=== PATIENT | male | born 1980 | race Caucasian/White ===

== ENCOUNTER 2023-06-16 09:29 | Observation (INO) | payer MEDICARE, OTHER ==
[~2023-06-16] VITALS: Ht 180.3 cm; Wt 83.5 kg
[2023-06-16 10:58] LABS: BASOPHILS ABSOLUTE AUTO 0.08 K/mm3 (0.00-0.23); BASOPHILS PERCENT AUTO 1 % (0-2); EOSINOPHILS ABSOLUTE AUTO 0.26 K/mm3 (0.00-0.68); EOSINOPHILS PERCENT AUTO 3 % (0-6); Hematocrit 40.9 % (37.0-53.0); Hemoglobin 12.8 g/dL (13.5-17.5); IMMATURE GRAN ABSOLUTE AUTO 0.03 K/mm3 (0.00-0.10); IMMATURE GRAN PERCENT AUTO 0 % (0-1); LYMPHOCYTES ABSOLUTE AUTO 1.49 K/mm3 (0.84-5.20); LYMPHOCYTES PERCENT AUTO 15 % (21-46); MONOCYTES ABSOLUTE AUTO 0.87 K/mm3 (0.16-1.47); MONOCYTES PERCENT AUTO 9 % (4-13); Mean Corpuscular HGB 30.7 pg (26.0-34.0); Mean Corpuscular HGB Conc 31.3 g/dL (31.5-36.5); Mean Corpuscular Volume 98 fL (80-100); Mean Platelet Volume 9.8 fL (9.1-12.4); NEUTROPHILS ABSOLUTE AUTO 7.42 K/mm3 (1.96-9.15); NEUTROPHILS PERCENT AUTO 73 % (41-73); Platelet Count 247 K/mm3 (150-400); RDW Coefficient Variation 12.7 % (11.7-14.2); RDW Standard Deviation 45.5 fL (35.1-46.3); Red Blood Cell Count 4.17 M/mm3 (4.30-5.90); White Blood Cell Count 10.15 K/mm3 (4.00-11.30)
[2023-06-16 11:23] LABS: Albumin, Blood 3.9 g/dL (3.4-5.0); Albumin/Globulin Ratio 0.9 (0.8-1.8); Bilirubin, Total 0.2 mg/dL (0.1-1.0); Bun/Creatinine Ratio 17.7 (12.0-20.0); Calcium, Blood 9.4 mg/dL (8.5-10.1); Creatinine, Blood 2.94 mg/dL (0.60-1.20); Globulin, Blood 4.2 g/dL (2.2-4.0); Potassium, Blood 5.6 mmol/L (3.5-5.5); Total Protein, Blood 8.1 g/dL (6.4-8.2)
[2023-06-16 18:12] VITALS: BP 135/80
[2023-06-16] MEDS ORDERED: Carvedilol12.5 MG PO (18:27)
[2023-06-16] MEDS ORDERED: HYDRA25 PO (18:28)
[2023-06-16] MEDS ORDERED: LISI20 PO (18:28)
[2023-06-16] MEDS ORDERED: HYDCHL25 PO (18:29)
[2023-06-16] MEDS ORDERED: CATAPRES0.1 MG PO (18:29)
--- NOTE | 2023-06-16 18:46 | NUR ---
ASSUMED CARE OF PT. PT ARRIVED AT 1800 AND TRANSFERED TO BED INDEPENDENTLY. PT A&OX4 AND CALLS APPROPRIATELY. TELEMETRY CONNECTED. PT ORIENTED TO ROOM AND UNIT. VSS. NO ACUTE EVENTS AT THIS TIME.
[2023-06-16 21:06] VITALS: BP 108/74
--- NOTE | 2023-06-17 03:01 | NUR ---
SHIFT SUMMARY PT A&O X4, CALM AND COOPERATIVE WITH CARE. TELEMETRY: SR @ 72. PT DENIES ANY CP OR PRESSURE AT THIS TIME. ROOM AIR. PT CALLS APPROPRAITELY FOR NEEDS. CALL LIGHT WITHIN REACH. PT CALLS APPROPRAITELY.
[2023-06-17 05:34] VITALS: BP 106/76
[2023-06-17 07:27] VITALS: BP 103/78
[2023-06-17 08:55] LABS: Albumin, Blood 3.7 g/dL (3.4-5.0); Albumin/Globulin Ratio 0.9 (0.8-1.8); Bilirubin, Total 0.2 mg/dL (0.1-1.0); Bun/Creatinine Ratio 17.2 (12.0-20.0); Calcium, Blood 8.9 mg/dL (8.5-10.1); Creatinine, Blood 2.62 mg/dL (0.60-1.20); Globulin, Blood 4.1 g/dL (2.2-4.0); Potassium, Blood 5.5 mmol/L (3.5-5.5); Total Protein, Blood 7.8 g/dL (6.4-8.2)
--- NOTE | 2023-06-17 14:14 | NUR ---
DISCHARGE NOTE PT DISCHARGED TO HOME, IV AND TELE REMOVED. DISCHARGE INFORMATION AND EDUCATION PROVIDED. NO NEW MEDICATIONS. PERSONAL BELONGINGS RETURNED.
== END 2023-06-17 14:10 | disposition home or self-care (01) ==
LOC: ER 09:29 → MEDS 09:30 → ERHOLD 09:30 → MEDS 18:10
PROVIDERS: Physician Assistant; ADMIT Internal Medicine
DX: R07.89 Other chest pain (principal); I12.9 Hypertensive chronic kidney disease with stage 1 through stage 4 chronic kidney disease, or unspecified chronic kidney disease; N18.9 Chronic kidney disease, unspecified; Z88.1 Allergy status to other antibiotic agents
CPT/HCPCS: 36415; 71046; 71260; 74177; 80053; 84484; 85025; 93005; 93010; 93246; 93306; 99285-25; A9270; G0378; Q9967

== ENCOUNTER → 2024-04-02 | Outpatient (CLI) | payer MEDICARE, OTHER ==
[~2024-04-02] MED LIST: CATAPRES0.1 MG PO; Carvedilol12.5 MG PO; HYDCHL25 PO; HYDRA25 PO; LISI20 PO; ZOLOFT50 MG PO
[2024-04-07 22:23] LABS: ALBUMIN %,URINE 86.8 %; ALPHA-1 %,URINE 3.6 %; ALPHA-2 %,URINE 0.8 %; BETA GLOBULIN %,URINE 5.2 %; GAMMA GLOBULIN %,URINE 3.6 %; HOURS COLLECTED 24 hr; TOTAL VOLUME 1300 mL
== END | disposition home or self-care (01) ==
LOC: LAB SHORT 14:38 → LAB 14:38
PROVIDERS: Hospitalist
DX: N18.32 Chronic kidney disease, stage 3b (principal)
CPT/HCPCS: 84156; 84166; 86335

== ENCOUNTER → 2024-08-23 | Outpatient (CLI) | payer MEDICARE, OTHER ==
[2024-08-23 13:34] LABS: Source, Urine Clean Catch
[2024-08-23 13:49] LABS: Appearance, Urine Clear (Clear); Bilirubin, Urine Neg (Neg); Blood, Urine 2+ (Neg); Color, Urine Yellow (P-Yellow); Glucose Qualitative, Urine Neg (Normal); Ketones, Urine Neg (Neg); Leukocyte Esterase, Urine Neg (Neg); Nitrite, Urine Neg (Neg); Protein, Urine Trace (Neg); Specific Gravity, Urine 1.015 (1.003-1.022); Urobilinogen, Urine NORM (Normal)
[2024-08-23 13:50] LABS: Bacteria Not Seen /hpf; Granular Casts 0-2 /lpf (0); Hyaline Casts 0-2 /lpf (0-2); Spermatozoa Rare /hpf; Squamous Epithelial Cells Not Seen /hpf (Few); White Blood Cells, Urine Not Seen /hpf (0-5)
[2024-08-23 15:26] LABS: Protein/Creat Ratio, Ur Random 0.4
== END ==
LOC: LAB 13:29 → LAB SHORT 13:29
PROVIDERS: Hospitalist
DX: N18.4 Chronic kidney disease, stage 4 (severe) (principal); R82.90 Unspecified abnormal findings in urine
CPT/HCPCS: 81001; 82570; 84156

== ENCOUNTER 2025-03-08 05:59 | Day surgery (SDC) | payer MEDICARE, OTHER ==
[~2025-03-08] VITALS: Ht 177.8 cm; Wt 92.8 kg
[~2025-03-08 05:59] MED LIST changes: +AMLO5 PO; +BUPR150ER PO; +CARV25 PO; +CATAPRES-TTS 31 EAC2 TOP; -CATAPRES0.1 MG PO; +CYCL10 PO; -Carvedilol12.5 MG PO; +GABA300 PO; +MAGNESIUM OXID500 MG PO; +MULTI-VITAMIN1 EAC2 PO; +PREG100; +PREG100 PO
[2025-03-08] MEDS ORDERED: CeFAZolin Sodium 2,000 MG in NS 100 ML IV SCH (06:25)
[2025-03-08 06:41] VITALS: BP 136/80
[2025-03-08] MEDS ORDERED: Bupivacaine 0.5% HCl 5 MG/ML 30MLVIAL ONE (07:12)
--- NOTE | 2025-03-08 07:17 | NUR ---
History, Chart, Medications and Allergies reviewed before start of procedure. Pre-Op teaching done. Pt verbalizes understanding. Patient confirms NPO status and agrees with scheduled surgery. PTS LOWER ABDOMEN/TOP OF GROIN APPEARS RED AND BUMPY BEFORE SHAVING TOOK PLACE. PT STATES "THAT IS FROM THE LAST SHAVE DONE A FEW WEEKS AGO WHEN I GOT PREPPED FOR SURGERY BUT THEN IT WAS CANCELLED."
--- NOTE | 2025-03-08 08:19 | NUR ---
PT PROCEDURE CANCELLED BY BROOKS ESCOBAR. DR. FRANCO STATES "AFTER REVIEWING CARDIAC NOTES AND CHART FROM [facility] RECOMMENDATIONS, AND CONSULTING WITH DR. POLANCO, I HAVE DECIDED I DO NOT FEEL COMFORTABLE WITH PROCEEDING TO SEDATE THIS PATIENT." PT SPEAKS LOUDLY STATING "ARE YOU FUCKING KIDDING ME? THIS IS THE SECOND TIME I HAVE WOKE UP EARLY, NOT EATEN OR DRANK ANYTHING ALL NIGHT, CAME IN AND GOTTEN CANCELLED. THIS IS FUCKING REDICULOUS. I WAS TOLD THE FIRST CANCELLATION THAT I NEEDED TO HAVE CLEARANCE BY [facility] AND I GOT THE CLEARANCE. I ALSO TRIED TO HAVE THE SURGERY SCHEDULED UP THERE AND THEY SAID NO I COULD HAVE IT DOWN HERE BECAUSE I WAS CLEARED. THEY TOLD ME I NEEDED TO HAVE MY BLOOD PRESSURE UNDER CONTROL WITH THE HIGH NUMBER ON TOP BEING LESS THAN 140 AND THE UNDER NUMBER BEING LESS THAN 90, AND I HAVE BOTH OF THOSE TODAY. I'M DONE WITH THIS HOSPITAL. YOU GUYS SUCK AT TALKING TO EACH OTHER BEFOREHAND. I'M LITERALLY IN EXTREME FUCKING PAIN EVERYDAY AND HAVE WAITED FOR THIS. DR. RENDON JUST TOLD ME WE WERE GOOD TO GO AND NOW HE'S TOO AFRAID TO COME TALK TO ME? I'M NOT MAD AT YOU THE NURSE. ALL YOU GUYS HAVE BEEN GREAT, BUT I SHOULD'VE NEVER BEEN BROUGHT BACK IN HERE TO JUST DO THE SAME SHIT AGAIN." ABDOULAYE RN, B[employer], SPOKE TO THE PATIENT AND SPOUSE AT WITH THE CURTAIN CLOSED FOR PRIVACY. UNABLE TO HEAR THE CONVERSATION. LASTED APPROX 10 MINUTES. IV WAS REMOVED. PT GOT DRESSED AND PT AND SPOUSE WALKED OUT OF THE DEPARTMENT QUIETLTY.
== END 2025-03-08 08:31 | disposition home or self-care (01) ==
LOC: ORSCMMR 05:59 → ORD 07:30 → ORSCMMR 07:30
DX: K42.9 Umbilical hernia without obstruction or gangrene (principal); Z53.9 Procedure and treatment not carried out, unspecified reason
CPT/HCPCS: J0690; J7120